=== PATIENT | female | born 1945 | race Caucasian/White ===

== ENCOUNTER → 2021-11-08 15:23 | Outpatient (BNVA) | payer MEDICARE, OTHER, SELFPAY | PROVIDERS: PCP Nurse Practitioner Adult Health; Visit Provider Nurse Practitioner Family | DX: M19.011 Primary osteoarthritis, right shoulder (principal); M19.012 Primary osteoarthritis, left shoulder | CPT/HCPCS: 99202 ==

== ENCOUNTER 2023-04-01 10:39 | Inpatient (IN) | payer MEDICARE, OTHER, SELFPAY ==
--- NOTE | ~2023-04-01 | CT_ITS ---
EXAMINATION: CT FACIAL BONES CLINICAL INFORMATION: Right-sided facial swelling COMPARISON: None TECHNIQUE: Computed axial sagittal and coronal images acquired, department standard protocol, 60 mL of Omnipaque 350 injected. DLP [address] examination was performed using dose optimization techniques as appropriate, variously including the following: *Automated exposure control *Adjustment of mA and/or kV according to patient size (this includes techniques or standardized protocols for targeted exams where dose is matched to indication/reason for exam; i.e. extremities or head) *Use of iterative reconstruction technique FINDINGS : SKULL BASE: Included structures at skull base are normal. BONES: Skull base, orbital bones, nasal bones, maxillary bones, mandibles, zygomatic arches, and included cervical vertebrae are normal. ORBITS: Globes are symmetric. Orbital structures are normal. SALIVARY GLANDS: Unremarkable SINUSES: Clear CT/CT facial bones w IV con IMPRESSION: Standard facial CT scan has limited sensitivity for assessment of periodontal disease, the morning artifact from dental implants, no large soft tissue abscesses identified. Recommend correlation with follow-up dental evaluation and x-rays.
--- NOTE | 2023-04-01 11:13 | ED_ITS ---
HPI - General Adult General Chief complaint: Dental/Oral Stated complaint: infection getting worse Time Seen by Provider: 04/01/23 12:40 Related Data Home Medications Medication Instructions Recorded Confirmed aspirin 81 mg tablet,delayed 81 mg PO DAILY 11/08/21 11/08/21 release (Adult Aspirin Regimen) atorvastatin 20 mg tablet 20 mg PO BEDTIME 11/08/21 11/08/21 diltiazem HCl 240 mg 240 mg PO DAILY 11/08/21 11/08/21 capsule,extended release 24 hr donepezil 10 mg tablet 10 mg PO BEDTIME 11/08/21 11/08/21 etodolac 400 mg tablet 400 mg PO ONCE 11/08/21 11/08/21 levothyroxine 50 mcg tablet 50 mcg PO DAILY 11/08/21 11/08/21 metformin 500 mg tablet,extended 1,500 mg PO DAILY 11/08/21 11/08/21 release 24 hr metoprolol tartrate 50 mg tablet 50 mg PO BID 11/08/21 11/08/21 nitroglycerin 0.4 mg sublingual 0.4 mg sublingual Q5M PRN 11/08/21 11/08/21 tablet omeprazole 20 mg capsule,delayed 20 mg PO BID 11/08/21 11/08/21 release sertraline 25 mg tablet 25 mg PO DAILY 11/08/21 11/08/21 sodium polystyrene sulfonate 10 g PO DAILY 11/08/21 11/08/21 topiramate 25 mg tablet 50 mg PO DAILY 11/08/21 11/08/21 Allergies Allergy/AdvReac Type Severity Reaction Status Date / Time latex [Latex] Allergy Mild SENSITIVITY Verified 11/08/21 15:31 /RASH/ITCHY meperidine [Demerol] Allergy Unknown Vomiting Verified 11/08/21 15:31 [place] Allergy Unknown nausea Uncoded 11/08/21 15:31 [facility] Past Medical History Medical History (Updated 04/01/23 @ 14:52 by Maria L Morris NP) Depression Diabetes mellitus type 2 in nonobese GERD (gastroesophageal reflux disease) Hyperlipidemia Hypertension Hypothyroidism Surgical History (Updated 04/01/23 @ 15:18 by Maria L Morris NP) H/O hernia repair H/O: hysterectomy Hx of cholecystectomy Social History Social History Smoked in Last 30 Days: No Use of substances other than those prescribed or required for medical reasons: No Advance Directives: Yes Advance Directives Information Provided: Yes Advance Directives on File: No Physical Exam ED Vital Signs: Vital Signs - 24 hr 04/01/23 11:14 04/01/23 14:39 Temperature 98.9 F 98.3 F Pulse Rate 86 84 Respiratory Rate 18 16 Blood Pressure 178/85 H 180/79 H Pulse Oximetry 98 96 Oxygen Delivery Method Room Air Room Air BMI result Body Mass Index 25.9 Course Course Course Narrative: RME performed by Renae Gordillo PA-C. Patient is a 78 year old assigned female at presenting to the emergency department with right sided facial swelling. Patient already finished a round of antibiotics and is on an additional round of antibiotics however, is vomiting and cannot keep the antibiotic down. Patient states that she is now having much more pain with mouth opening and can feel the swelling going down the right side of her neck. Labs ordered. Patient placed back in the waiting room pending room availability and results. Patient was seen by SHILPI Torres who created, completed, and signed her own note. Patient was admitted. Please refer to the other ED note from 04/01/2023. Medications Administered Generic Name Dose Route Start Last Admin Trade Name Freq PRN Reason Stop Dose Admin Sodium Chloride 3 ml 04/01/23 16:00 04/01/23 15:26 0.9 % Sodium Chloride Flush 3 Ml Syringe IVFLUSH Not Given QSHIFT JESUS MANUEL Discontinued Medications Generic Name Dose Route Start Last Admin Trade Name Freq PRN Reason Stop Dose Admin Dexamethasone Sodium Phosphate 8 mg 04/01/23 13:41 04/01/23 14:21 Dexamethasone Sod Phosphate 4 Mg/Ml Vial IVPUSH 04/01/23 13:42 8 mg ONCE ONE Administration Clindamycin Phosphate 600 mg in 50 mls @ 100 mls/hr 04/01/23 12:40 04/01/23 15:05 Cleocin IV 04/01/23 13:09 100 mls/hr ONCE ONE Administration Sodium Chloride 1,000 mls @ 999 mls/hr 04/01/23 12:45 04/01/23 15:26 Ns IV 04/01/23 13:45 Infused .Q1H1M JESUS MANUEL Infusion Sodium Chloride 1,000 mls @ 999 mls/hr 04/01/23 12:45 04/01/23 15:27 Ns IV 04/01/23 13:45 Infused .Q1H1M JESUS MANUEL Infusion Iohexol 100 ml 04/01/23 13:32 04/01/23 13:32 Iohexol 350 Mg/Ml 100 Ml Infus..Btl IV 04/01/23 13:33 60 ml ONCE ONE Administration Medical Decision Making Lab Data 04/01/23 11:36 04/01/23 11:36 Labs: Lab Results 04/01/23 04/01/23 04/01/23 Range/Units 11:34 11:36 11:36 WBC 9.7 (4.8-10.8) X10*3/uL RBC 4.91 (4.20-5.50) X10*6/uL Hgb 13.9 (12.0-16.0) g/dl Hct 40.2 (37.0-47.0) % MCV 81.9 (80.0-98.0) fL MCH 28.3 (27.0-33.0) pg MCHC 34.6 (31.0-35.0) g/dl RDW 12.6 (11.0-16.0) % Plt Count 196 (160-400) X10*3/uL MPV 10.0 (9.4-12.3) fL Immature Gran % (Auto) 0.4 (0.0-0.4) % Neut % (Auto) 75.3 H (45-73) % Lymph % (Auto) 16.2 L (20-40) % [place] % (Auto) 7.6 (2-11) % Eos % (Auto) 0.1 (0-4) % Baso % (Auto) 0.4 (0-2) % Lymph # (Auto) 1.6 (1.2-4.9) X10*3/uL [place] # (Auto) 0.7 (0.1-1.2) X10*3/uL Eos # (Auto) 0.0 (0.0-0.4) X10*3/uL Baso # (Auto) 0.0 (0.0-0.2) X10*3/uL Abs Immat Gran (auto) 0.04 H (0.00-0.03) X10*3/uL Absolute Neuts (auto) 7.3 (2.0-8.3) x10*3/uL Absolute Nucleated RBC 0.000 (0.0-0.012) X10*3/uL Nucleated RBC % (auto) 0.0 (0.0-0.2) /100WBC ESR 28 H (0-20) MM/HR Sodium (135-145) mmol/L Potassium (3.3-5.1) mmol/L Chloride (96-108) mmol/L Carbon Dioxide (22-29) mmol/L Anion Gap (12-20) BUN (9-16) mg/dL Creatinine (0.5-1.4) mg/dL Estim Creat Clear Calc Estimated GFR Random Glucose (60-115) mg/dL Lactic Acid 2.7 H* (0.5-2.0) mmol/L Lactic Acid F/U @ 2Hr (0.5-2.0) mmol/L Calcium (8.4-10.2) mg/dL Magnesium (1.6-2.6) mg/dL Total Bilirubin (0.0-1.0) mg/dL AST (5-31) U/L ALT (0-31) U/L Alkaline Phosphatase (39-117) U/L C-Reactive Protein (< or = 0.50) mg/dL Total Protein (6.5-8.0) g/dL Albumin (3.5-5.0) g/dL 04/01/23 04/01/23 Range/Units 11:36 14:34 WBC (4.8-10.8) X10*3/uL RBC (4.20-5.50) X10*6/uL Hgb (12.0-16.0) g/dl Hct (37.0-47.0) % MCV (80.0-98.0) fL MCH (27.0-33.0) pg MCHC (31.0-35.0) g/dl RDW (11.0-16.0) % Plt Count (160-400) X10*3/uL MPV (9.4-12.3) fL Immature Gran % (Auto) (0.0-0.4) % Neut % (Auto) (45-73) % Lymph % (Auto) (20-40) % [place] % (Auto) (2-11) % Eos % (Auto) (0-4) % Baso % (Auto) (0-2) % Lymph # (Auto) (1.2-4.9) X10*3/uL [place] # (Auto) (0.1-1.2) X10*3/uL Eos # (Auto) (0.0-0.4) X10*3/uL Baso # (Auto) (0.0-0.2) X10*3/uL Abs Immat Gran (auto) (0.00-0.03) X10*3/uL Absolute Neuts (auto) (2.0-8.3) x10*3/uL Absolute Nucleated RBC (0.0-0.012) X10*3/uL Nucleated RBC % (auto) (0.0-0.2) /100WBC ESR (0-20) MM/HR Sodium 133 L (135-145) mmol/L Potassium 4.2 (3.3-5.1) mmol/L Chloride 101 (96-108) mmol/L Carbon Dioxide 17 L (22-29) mmol/L Anion Gap 19 (12-20) BUN 11 (9-16) mg/dL Creatinine 0.77 (0.5-1.4) mg/dL Estim Creat Clear Calc 55.0 Estimated GFR > 60 Random Glucose 232 H (60-115) mg/dL Lactic Acid (0.5-2.0) mmol/L Lactic Acid F/U @ 2Hr 3.3 H* (0.5-2.0) mmol/L Calcium 9.9 (8.4-10.2) mg/dL Magnesium 1.7 (1.6-2.6) mg/dL Total Bilirubin 0.8 (0.0-1.0) mg/dL AST 23 (5-31) U/L ALT 23 (0-31) U/L Alkaline Phosphatase 104 (39-117) U/L C-Reactive Protein 12.72 H (< or = 0.50) mg/dL Total Protein 7.7 (6.5-8.0) g/dL Albumin 4.5 (3.5-5.0) g/dL Discharge Plan Discharge Clinical Impression: Toothache, Dental abscess, Trismus, Facial swelling Patient Disposition: Admitted As Inpatient
[2023-04-01 11:14] VITALS: BP 178/85; PULSE 86; RESP 18; TEMP 37.2; O2SAT 98; BMI 25.9
[2023-04-01 11:42] LABS: MANUAL DIFF FLAG NO
[2023-04-01 11:45] LABS: Basophils Percent Auto 0.4 % (0-2); Eosinophils Percent Auto 0.1 % (0-4); Hematocrit 40.2 % (37.0-47.0); Hemoglobin 13.9 g/dl (12.0-16.0); Imm Gran Abs Auto 0.04 X10*3/uL (0.00-0.03); Imm Gran Pct Auto 0.4 % (0.0-0.4); Lymphocytes Absolute Auto 1.6 X10*3/uL (1.2-4.9); Lymphocytes Percent Auto 16.2 % (20-40); Mean Corpuscular HGB Conc 34.6 g/dl (31.0-35.0); Mean Corpuscular Hemoglobin 28.3 pg (27.0-33.0); Mean Corpuscular Volume 81.9 fL (80.0-98.0); Monocytes Absolute Auto 0.7 X10*3/uL (0.1-1.2); Monocytes Percent Auto 7.6 % (2-11); Neutrophils Absolute Auto 7.3 x10*3/uL (2.0-8.3); Neutrophils Percent Auto 75.3 % (45-73); Platelet Count 196 X10*3/uL (160-400); Red Blood Count 4.91 X10*6/uL (4.20-5.50); Red Cell Distribution Width 12.6 % (11.0-16.0); White Blood Count 9.7 X10*3/uL (4.8-10.8)
[2023-04-01 12:00] LABS: Alanine Aminotransferase 23 U/L (0-31); Albumin Level 4.5 g/dL (3.5-5.0); Alkaline Phosphatase 104 U/L (39-117); Anion Gap 19 (12-20); Aspartate Amino Transferase 23 U/L (5-31); Bilirubin Total 0.8 mg/dL (0.0-1.0); Blood Urea Nitrogen 11 mg/dL (9-16); C Reactive Protein 12.72 mg/dL (< or = 0.50); Calcium 9.9 mg/dL (8.4-10.2); Carbon Dioxide 17 mmol/L (22-29); Chloride 101 mmol/L (96-108); Estimated Glomerular Filt Rate > 60; Glucose Random 232 mg/dL (60-115); Magnesium 1.7 mg/dL (1.6-2.6); Potassium 4.2 mmol/L (3.3-5.1); Sodium 133 mmol/L (135-145); Total Protein 7.7 g/dL (6.5-8.0)
[2023-04-01 12:02] LABS: Lactic Acid 2.7 mmol/L (0.5-2.0)
[2023-04-01 12:29] LABS: Erythrocyte Sedimentation Rate 28 MM/HR (0-20)
--- NOTE | 2023-04-01 12:41 | ED.DENTAL ---
HPI - Dental/Oral General Chief complaint: Dental/Oral Stated complaint: infection getting worse Time Seen by Provider: 04/01/23 12:40 Source: patient Mode of arrival: ambulatory Limitations: no limitations History of Present Illness HPI Narrative: This is a 78-year-old female history of diabetes, recently diagnosed with dental infection presenting to the emergency department with concerns that infection is worsening despite multiple rounds of antibiotics. Patient reports she is having right-sided facial swelling, and pain that radiates into the right side of her neck she feels like the whole right side of her face and neck is much more swollen than usual, patient has been on 2 rounds of antibiotics with little to no improvement. Patient now reports it is very painful to open her mouth. Endorses fatigue, malaise, nausea, vomiting. Had dental work done last sunday a routine cleaning. Denies headache, vision changes, dizziness, weakness, chest pain, shortness of breath, fevers, chills Related Data Home Medications Medication Instructions Recorded Confirmed aspirin 81 mg tablet,delayed 81 mg PO DAILY 11/08/21 11/08/21 release (Adult Aspirin Regimen) atorvastatin 20 mg tablet 20 mg PO BEDTIME 11/08/21 11/08/21 diltiazem HCl 240 mg 240 mg PO DAILY 11/08/21 11/08/21 capsule,extended release 24 hr donepezil 10 mg tablet 10 mg PO BEDTIME 11/08/21 11/08/21 etodolac 400 mg tablet 400 mg PO ONCE 11/08/21 11/08/21 levothyroxine 50 mcg tablet 50 mcg PO DAILY 11/08/21 11/08/21 metformin 500 mg tablet,extended 1,500 mg PO DAILY 11/08/21 11/08/21 release 24 hr metoprolol tartrate 50 mg tablet 50 mg PO BID 11/08/21 11/08/21 nitroglycerin 0.4 mg sublingual 0.4 mg sublingual Q5M PRN 11/08/21 11/08/21 tablet omeprazole 20 mg capsule,delayed 20 mg PO BID 11/08/21 11/08/21 release sertraline 25 mg tablet 25 mg PO DAILY 11/08/21 11/08/21 sodium polystyrene sulfonate 10 g PO DAILY 11/08/21 11/08/21 topiramate 25 mg tablet 50 mg PO DAILY 11/08/21 11/08/21 Allergies Allergy/AdvReac Type Severity Reaction Status Date / Time latex [Latex] Allergy Mild SENSITIVITY Verified 11/08/21 15:31 /RASH/ITCHY meperidine [Demerol] Allergy Unknown Vomiting Verified 11/08/21 15:31 [place] Allergy Unknown nausea Uncoded 11/08/21 15:31 Review of Systems Review of Systems: Constitutional : No Fever, No Chills ENT/Mouth : No swallowing difficulty, no change in voice, positive dental pain, positive jaw pain, positive facial swelling Eyes: No Eye Pain, No Swelling Cardiovascular : No Chest Pain, No SOB Respiratory : No Cough, No Sputum Gastrointestinal : No Nausea, No Vomiting, No Diarrhea Genitourinary : No Dysuria Musculoskeletal : No Myalgias Skin : No rash Neuro : No Weakness, No Numbness, No Headache Yes all other systems are reviewed and are negative [facility], [facility] Past Medical History Attestation statement: The following information was validated with the patient. Source: old records reviewed and nursing notes reviewed Medical History (Updated 04/01/23 @ 14:52 by Maria L Morris NP) Depression Diabetes mellitus type 2 in nonobese GERD (gastroesophageal reflux disease) Hyperlipidemia Hypertension Hypothyroidism Surgical History (Updated 04/01/23 @ 15:18 by Maria L Morris NP) H/O hernia repair H/O: hysterectomy Hx of cholecystectomy Social History Social History Smoked in Last 30 Days: No Use of substances other than those prescribed or required for medical reasons: No Advance Directives: Yes Advance Directives Information Provided: Yes Advance Directives on File: No Physical Exam Vital Signs: Vital Signs: Last Vital Signs Temp 98.3 F 04/01/23 14:39 Pulse 84 04/01/23 14:39 Resp 16 04/01/23 14:39 BP 180/79 H 04/01/23 14:39 Pulse Ox 96 04/01/23 14:39 O2 Del Method Room Air 04/01/23 14:39 BMI result Body Mass Index 25.9 Vital signs stable Appearance: Alert.? Oriented X3.? No acute distress.? Head: Normocephalic, atraumatic, no step-offs or deformities Eyes: Pupils equal, round and reactive to light.? ENT: Pharynx normal.?+ poor dentition throughout, multiple dental caries throughout, tenderness to palpation to right side of face, particularly around the right lower gum region (? developing dental abscess around right lower wisdom tooth) with overlying erythema, warmth. Fractured right lower wisdom tooth Positive trismus patient speaking in full sentences controlling secretions well Neck: Normal inspection.? Neck supple.? CVS: Normal heart rate and rhythm.? Pulses normal.? Respiratory: No respiratory distress.? Breath sounds normal.? Abdomen: Soft and nontender.? Skin: Skin warm and dry.? Normal skin color.? Normal skin turgor.? Extremities: No lower extremity edema.? No calf ttp. 5/5 strength to bilateral upper and lower extremities Back: No midline tenderness, no C-spine tenderness, full range of motion, no CVA tenderness bilaterally Neuro: Oriented X 3.? No motor deficit.? No sensory deficit. CN 2-12 intact Course Reevaluation(s) Reevaluation #1: CBC with no acute findings. Chemistry with low sodium 133, IV fluids ordered. Patient's lactic elevated 2.7, IV fluids as well as antibiotics are ordered. Patient's glucose 232, receiving IV hydration. CRP markedly elevated 12.72. Pending CT facial bones with contrast to rule out abscess. Time: 12:45 Reevaluation #2: CT of facial bones does not identify any large soft tissue abscess identified. Patient likely has a small right lower dental abscess, with associated cellulitis, plan for hospital admission as patient has failed p.o. antibiotics. Time: 14:19 Reevaluation #3: Discussed this case my attending who agrees with hospital admission as patient has failed p.o. antibiotics. Time: 14:21 Medications Administered Discontinued Medications Generic Name Dose Route Start Last Admin Trade Name Freq PRN Reason Stop Dose Admin Dexamethasone Sodium Phosphate 8 mg 04/01/23 13:41 04/01/23 14:21 Dexamethasone Sod Phosphate 4 Mg/Ml Vial IVPUSH 04/01/23 13:42 8 mg ONCE ONE Administration Clindamycin Phosphate 600 mg in 50 mls @ 100 mls/hr 04/01/23 12:40 04/01/23 15:05 Cleocin IV 04/01/23 13:09 100 mls/hr ONCE ONE Administration Sodium Chloride 1,000 mls @ 999 mls/hr 04/01/23 12:45 04/01/23 13:41 Ns IV 04/01/23 13:45 999 mls/hr .Q1H1M JESUS MANUEL Administration Sodium Chloride 1,000 mls @ 999 mls/hr 04/01/23 12:45 04/01/23 13:44 Ns IV 04/01/23 13:45 999 mls/hr .Q1H1M JESUS MANUEL Administration Iohexol 100 ml 04/01/23 13:32 04/01/23 13:32 Iohexol 350 Mg/Ml 100 Ml Infus..Btl IV 04/01/23 13:33 60 ml ONCE ONE Administration Medical Decision Making Medical Decision Making [facility] Narrative: 1248 78-year-old female presents with tooth infection and now subsequent right-sided facial swelling and difficulties with opening mouth Physical exam significant for poor dentition throughout, multiple dental caries throughout, tenderness to palpation to right side of face, particularly around the right lower gum region (? developing dental abscess around right lower wisdom tooth)with overlying erythema, warmth. Fractured right lower wisdom tooth Positive trismus patient speaking in full sentences controlling secretions well Concerns for cellulitis versus worsening infection versus dental abscess versus poor dentition versus dental caries. Will rule out dental abscess. No signs of airway compromise at this time. Will rule out electrolyte abnormalities. No abdominal tenderness to palpation unlikely acute abdomen, appendicitis, cholecystitis, diverticulitis, pancreatitis. No sign of necrotizing infection, or Mario's Patient feeling p.o. antibiotics, IV antibiotics warranted as well as hospital admission. Plan labs, imaging, blood cultures, lactic acid, antibiotics, fluids. Differential Diagnosis Differential Diagnoses: The differential diagnosis associated with the presentation includes Concerns for cellulitis versus worsening infection versus dental abscess versus poor dentition versus dental caries. Will rule out dental abscess. No signs of airway compromise at this time. Will rule out electrolyte abnormalities. No abdominal tenderness to palpation unlikely acute abdomen, appendicitis, cholecystitis, diverticulitis, pancreatitis. No sign of necrotizing infection, or Mario's Admission/Observation Consideration of admission/observation: Escalation of care including admission/observation considered Likely Lab Data [facility] Lab Attestation statement: I reviewed the patient's lab results. 04/01/23 11:36 04/01/23 11:36 Labs: Lab Results 04/01/23 04/01/23 04/01/23 Range/Units 11:34 11:36 11:36 WBC 9.7 (4.8-10.8) X10*3/uL RBC 4.91 (4.20-5.50) X10*6/uL Hgb 13.9 (12.0-16.0) g/dl Hct 40.2 (37.0-47.0) % MCV 81.9 (80.0-98.0) fL MCH 28.3 (27.0-33.0) pg MCHC 34.6 (31.0-35.0) g/dl RDW 12.6 (11.0-16.0) % Plt Count 196 (160-400) X10*3/uL MPV 10.0 (9.4-12.3) fL Immature Gran % (Auto) 0.4 (0.0-0.4) % Neut % (Auto) 75.3 H (45-73) % Lymph % (Auto) 16.2 L (20-40) % [place] % (Auto) 7.6 (2-11) % Eos % (Auto) 0.1 (0-4) % Baso % (Auto) 0.4 (0-2) % Lymph # (Auto) 1.6 (1.2-4.9) X10*3/uL [place] # (Auto) 0.7 (0.1-1.2) X10*3/uL Eos # (Auto) 0.0 (0.0-0.4) X10*3/uL Baso # (Auto) 0.0 (0.0-0.2) X10*3/uL Abs Immat Gran (auto) 0.04 H (0.00-0.03) X10*3/uL Absolute Neuts (auto) 7.3 (2.0-8.3) x10*3/uL Absolute Nucleated RBC 0.000 (0.0-0.012) X10*3/uL Nucleated RBC % (auto) 0.0 (0.0-0.2) /100WBC ESR 28 H (0-20) MM/HR Sodium (135-145) mmol/L Potassium (3.3-5.1) mmol/L Chloride (96-108) mmol/L Carbon Dioxide (22-29) mmol/L Anion Gap (12-20) BUN (9-16) mg/dL Creatinine (0.5-1.4) mg/dL Estim Creat Clear Calc Estimated GFR Random Glucose (60-115) mg/dL Lactic Acid 2.7 H* (0.5-2.0) mmol/L Lactic Acid F/U @ 2Hr (0.5-2.0) mmol/L Calcium (8.4-10.2) mg/dL Magnesium (1.6-2.6) mg/dL Total Bilirubin (0.0-1.0) mg/dL AST (5-31) U/L ALT (0-31) U/L Alkaline Phosphatase (39-117) U/L C-Reactive Protein (< or = 0.50) mg/dL Total Protein (6.5-8.0) g/dL Albumin (3.5-5.0) g/dL 04/01/23 04/01/23 Range/Units 11:36 14:34 WBC (4.8-10.8) X10*3/uL RBC (4.20-5.50) X10*6/uL Hgb (12.0-16.0) g/dl Hct (37.0-47.0) % MCV (80.0-98.0) fL MCH (27.0-33.0) pg MCHC (31.0-35.0) g/dl RDW (11.0-16.0) % Plt Count (160-400) X10*3/uL MPV (9.4-12.3) fL Immature Gran % (Auto) (0.0-0.4) % Neut % (Auto) (45-73) % Lymph % (Auto) (20-40) % [place] % (Auto) (2-11) % Eos % (Auto) (0-4) % Baso % (Auto) (0-2) % Lymph # (Auto) (1.2-4.9) X10*3/uL [place] # (Auto) (0.1-1.2) X10*3/uL Eos # (Auto) (0.0-0.4) X10*3/uL Baso # (Auto) (0.0-0.2) X10*3/uL Abs Immat Gran (auto) (0.00-0.03) X10*3/uL Absolute Neuts (auto) (2.0-8.3) x10*3/uL Absolute Nucleated RBC (0.0-0.012) X10*3/uL Nucleated RBC % (auto) (0.0-0.2) /100WBC ESR (0-20) MM/HR Sodium 133 L (135-145) mmol/L Potassium 4.2 (3.3-5.1) mmol/L Chloride 101 (96-108) mmol/L Carbon Dioxide 17 L (22-29) mmol/L Anion Gap 19 (12-20) BUN 11 (9-16) mg/dL Creatinine 0.77 (0.5-1.4) mg/dL Estim Creat Clear Calc 55.0 Estimated GFR > 60 Random Glucose 232 H (60-115) mg/dL Lactic Acid (0.5-2.0) mmol/L Lactic Acid F/U @ 2Hr 3.3 H* (0.5-2.0) mmol/L Calcium 9.9 (8.4-10.2) mg/dL Magnesium 1.7 (1.6-2.6) mg/dL Total Bilirubin 0.8 (0.0-1.0) mg/dL AST 23 (5-31) U/L ALT 23 (0-31) U/L Alkaline Phosphatase 104 (39-117) U/L C-Reactive Protein 12.72 H (< or = 0.50) mg/dL Total Protein 7.7 (6.5-8.0) g/dL Albumin 4.5 (3.5-5.0) g/dL Independent Interpretation I performed an independent interpretation of an: CT Scan Radiology Impression Discussion of test interpretation with radiology: I have reviewed the radiologist's reading. Core Measures AMI core measures followed: Yes Measure exclusions: not indicated Critical Care Time Critical Care Time Critical Care Time: Yes Total Critical Care Time: 35 Attestation: I attest to this time spent taking care of the patient, obtaining history, physical, reviewing labs, imaging, speaking to my attending, Discharge Plan Discharge Clinical Impression: Toothache, Dental abscess, Trismus, Facial swelling Patient Disposition: Admitted As Inpatient
[2023-04-01] MEDS: iohexoL 350 MG/ML 100 ML INFUS..BTL IV (13:32)
[2023-04-01 13:40] LABS: Reflex Lactate? Lactic Acid Added
[2023-04-01] MEDS: 0.9 % Sodium Chloride 1,000 ML 999 ML IV ×2 (13:41→13:44)
[2023-04-01] MEDS: dexAMETHasone sod phosphate 4 MG/ML VIAL 8 MG IVPUSH (14:21)
[2023-04-01 14:39] VITALS: BP 180/79; PULSE 84; RESP 16; TEMP 36.8; O2SAT 96
--- NOTE | 2023-04-01 14:50 | P.HPHOSP_ITS ---
History of Present Illness Date of Service: 04/01/23 Chief Complaint: Tooth pain 70-year-old woman presented to the ER with tooth infection. Patient was being treated with oral antibiotics but failed. She had episodes of nausea and vomiting and was unable to keep anything down. She reported increased swelling to her right gum area as well as her cheek and neck area. Very sensitive and painful to the touch. She denied fever, chills. She does have an appointment with an oral surgeon on . Facial CT showed no large soft tissue abscess although on clinical examination she does appear to have a small one on the gum area. Labs within acceptable limits, vital signs are stable though her blood pressure is high Likely secondary to pain. In the ER, she was given a dose of clindamycin, Decadron and 2 L of IV fluids. She will be admitted for further management and treatment of acute tooth infection with abscess. Review of Systems Review of Systems: Denies any recent fever chills or decrease in appetite respiratory denies any shortness of breath coverage production cardiovascular denied chest pain gastrointestinal denies any dysphagia abdominal pain nausea vomiting or diarrhea genitourinary denies any dysuria frequency or hematuria musculoskeletal denies any joint pain or swelling neuropsych denies any weakness or seizures all other systems reviewed are negative [facility] Medical History (Updated 04/01/23 @ 14:52 by Maria L Morris NP) Depression Diabetes mellitus type 2 in nonobese GERD (gastroesophageal reflux disease) Hyperlipidemia Hypertension Hypothyroidism Pertinent family history: Melanoma: sister and niece Surgical History (Updated 04/01/23 @ 15:18 by Maria L Morris NP) H/O hernia repair H/O: hysterectomy Hx of cholecystectomy Social History Smoked in Last 30 Days: No Use of substances other than those prescribed or required for medical reasons: No Advance Directives: Yes Advance Directives Information Provided: Yes Advance Directives on File: No Meds Allergies Allergy/AdvReac Type Severity Reaction Status Date / Time latex [Latex] Allergy Mild SENSITIVITY Verified 11/08/21 15:31 /RASH/ITCHY meperidine [Demerol] Allergy Unknown Vomiting Verified 11/08/21 15:31 [place] Allergy Unknown nausea Uncoded 11/08/21 15:31 Active Medications: Current Medications Pharmacy Consult (Consult Rx Perform Med Rec) 1 each MISCELLANE ONCE PRN PRN Reason: Consult order Home Medications Medication Instructions Recorded Confirmed Last Taken Type aspirin 81 mg tablet,delayed 81 mg PO DAILY 11/08/21 11/08/21 Unknown History release (Adult Aspirin Regimen) atorvastatin 20 mg tablet 20 mg PO BEDTIME 11/08/21 11/08/21 Unknown History diltiazem HCl 240 mg 240 mg PO DAILY 11/08/21 11/08/21 Unknown History capsule,extended release 24 hr donepezil 10 mg tablet 10 mg PO BEDTIME 11/08/21 11/08/21 Unknown History etodolac 400 mg tablet 400 mg PO ONCE 11/08/21 11/08/21 Unknown History levothyroxine 50 mcg tablet 50 mcg PO DAILY 11/08/21 11/08/21 Unknown History metformin 500 mg tablet,extended 1,500 mg PO DAILY 11/08/21 11/08/21 Unknown History release 24 hr metoprolol tartrate 50 mg tablet 50 mg PO BID 11/08/21 11/08/21 Unknown History nitroglycerin 0.4 mg sublingual 0.4 mg sublingual Q5M PRN 11/08/21 11/08/21 Unknown History tablet omeprazole 20 mg capsule,delayed 20 mg PO BID 11/08/21 11/08/21 Unknown History release sertraline 25 mg tablet 25 mg PO DAILY 11/08/21 11/08/21 Unknown History sodium polystyrene sulfonate 10 g PO DAILY 11/08/21 11/08/21 Unknown History topiramate 25 mg tablet 50 mg PO DAILY 11/08/21 11/08/21 Unknown History Physical Exam Vital Signs and Narrative: Vital Signs: Last Vital Signs Temp 98.3 F 04/01/23 14:39 Pulse 84 04/01/23 14:39 Resp 16 04/01/23 14:39 BP 180/79 H 04/01/23 14:39 Pulse Ox 96 04/01/23 14:39 O2 Del Method Room Air 04/01/23 14:39 BMI result Body Mass Index 25.9 Results Labs 04/01/23 11:36 04/01/23 11:36 Labs: Laboratory Results - last 24 hr 04/01/23 04/01/23 04/01/23 11:34 11:36 11:36 MCV 81.9 MCH 28.3 MCHC 34.6 RDW 12.6 Plt Count 196 MPV 10.0 Immature Gran % (Auto) 0.4 Neut % (Auto) 75.3 H Lymph % (Auto) 16.2 L [place] % (Auto) 7.6 Eos % (Auto) 0.1 Baso % (Auto) 0.4 Lymph # (Auto) 1.6 [place] # (Auto) 0.7 Eos # (Auto) 0.0 Baso # (Auto) 0.0 Abs Immat Gran (auto) 0.04 H Absolute Neuts (auto) 7.3 Absolute Nucleated RBC 0.000 Nucleated RBC % (auto) 0.0 ESR 28 H Anion Gap Estim Creat Clear Calc Estimated GFR Random Glucose Lactic Acid 2.7 H* Calcium Magnesium Total Bilirubin AST ALT Alkaline Phosphatase C-Reactive Protein Total Protein Albumin 04/01/23 11:36 MCV MCH MCHC RDW Plt Count MPV Immature Gran % (Auto) Neut % (Auto) Lymph % (Auto) [place] % (Auto) Eos % (Auto) Baso % (Auto) Lymph # (Auto) [place] # (Auto) Eos # (Auto) Baso # (Auto) Abs Immat Gran (auto) Absolute Neuts (auto) Absolute Nucleated RBC Nucleated RBC % (auto) ESR Anion Gap 19 Estim Creat Clear Calc 55.0 Estimated GFR > 60 Random Glucose 232 H Lactic Acid Calcium 9.9 Magnesium 1.7 Total Bilirubin 0.8 AST 23 ALT 23 Alkaline Phosphatase 104 C-Reactive Protein 12.72 H Total Protein 7.7 Albumin 4.5 Imaging Radiologist's Impressions: Impressions Face CT 04/01/23 13:33 IMPRESSION: Standard facial CT scan has limited sensitivity for assessment of periodontal disease, the morning artifact from dental implants, no large soft tissue abscesses identified. Recommend correlation with follow-up dental evaluation and x-rays. Assessment and Plan (1) Toothache: Status: Acute Plan 78-year-old woman admitted with tooth abscess. She failed 2 rounds of outpatient antibiotics. Tooth abscess with infection No sepsis Will treat with clindamycin IV Pain management Will need to follow up in a dental office once acute infection is gone Soft diet with Ensure Lidocaine viscous as needed for mild pain Hypertension Elevated blood pressure likely secondary to pain Continue metoprolol and diltiazem Mental health Continue home medications Hypothyroidism Continue levothyroxine Hyperlipidemia Continue statin GERD Continue PPI DVT prophylaxis with Lovenox Full code Patient required 2 inpatient midnights for treatment of tooth abscess and infection requiring IV antibiotics Time Spent With Patient Time: Total time managing care of this patient today ____ minutes. Quality Stroke Does the patient have a stroke diagnosis?: No VTE Prior VTE?: No VTE Risk Level:: Medical - moderate - high VTE Device Contraindication: Treatment Not Indicated VTE Drug Contraindication: N/A - Med Ordered
[2023-04-01 14:59] LABS: ~Lactic Acid-LAB USE ONLY 3.3 mmol/L (0.5-2.0)
[2023-04-01] MEDS: Clindamycin Phosphate/D5W 600 MG/50 ML PIGGYBACK 100 MG IV ×2 (15:05→21:06)
--- NOTE | 2023-04-01 16:28 | PC.NURSE ---
pt a&o x4, pleasant, calm, and cooperative. 20G placed to the Left wrist/forearm, patent. pt medicated per oct. pt up to commode and ambulatory. awaiting admit orders. rr even/unlabored. pt needs met new. call moore within reach
[2023-04-01 16:38] LABS: Reflex Lactate? 2 Y
[2023-04-01 17:15] LABS: ~Lactic Acid-LAB USE ONLY 1.9 mmol/L (0.5-2.0)
[2023-04-01 17:56] LABS: Glucose, Whole Blood 252 mg/dL (60-115)
--- NOTE | 2023-04-01 18:07 | PHA.MEDREC ---
Pharmacy Consult ? Medication Reconciliation Pharmacy has completed the medication reconciliation. spoke with patients daughter who helps her with her medications. Gabapentin is prescribed as 600 BID but patient takes 300mg TID. Patient verified using Toujeo pen 10u every morning. She also verified using Kayexalate powder 10g every morning. She said she took her morning medications today.
[2023-04-01] MEDS: Insulin Lispro 100 UNIT/ML 3 ML VIAL SUBCUT ×2 (18:42→21:07)
[2023-04-01 19:01] VITALS: BP 187/91; PULSE 91; RESP 17; TEMP 36.9; O2SAT 97
[2023-04-01] MEDS: ondansetron HCL 4 MG/2 ML VIAL IVPUSH (20:00)
[2023-04-01 20:59] LABS: Glucose, Whole Blood 322 mg/dL (60-115)
[2023-04-01 21:04] VITALS: BP 184/83; PULSE 91; RESP 18; O2SAT 95
[2023-04-01] MEDS: Acetaminophen 325 MG TABLET 650 MG PO (21:06)
[2023-04-01] MEDS: Metoprolol Tartrate 50 MG TABLET PO (21:06)
[2023-04-02] VITALS (9 sets, daily range): BP systolic 168–218; BP diastolic 68–95; PULSE 70–99; RESP 17–18; TEMP 36.3–36.8; O2SAT 95–98; BMI 25.0
[2023-04-02] MEDS: 0.9 % Sodium Chloride Flush 3 ML SYRINGE IVFLUSH ×4 (00:16→20:11)
--- NOTE | 2023-04-02 00:30 | PC.NURSE ---
Report to Hong RAINEY.
[2023-04-02] MEDS: hydrALAZINE HCl 20 MG/ML VIAL 10 MG IVPUSH ×2 (02:19→06:30)
[2023-04-02] MEDS: Melatonin 3 MG TABLET 6 MG PO (02:19)
[2023-04-02] MEDS: Clindamycin Phosphate/D5W 600 MG/50 ML PIGGYBACK 100 MG IV ×4 (02:19→20:10)
--- NOTE | 2023-04-02 04:07 | PC.NURSE ---
Addendum entered by Thaddeus Link RN 04/02/23 06:09: Bp continues to be elevated. MD notified. AM meds given early per Ming DEWITT. Additional dose of hydralzine ordered. PRN Tylenol for c/o headache. Original Note: Pt admitted from ED. A&Ox4. Pleasant and cooperative with care. A&Ox4, steady on feet. Ambulating from stretcher to bed without difficultly. IV Antibiotics as ordered. Right cheek/jaw line swelling as noted in ED. Call moore within reach.
[2023-04-02] MEDS: Omeprazole 20 MG CAPSULE.DR PO (05:59)
[2023-04-02] MEDS: Acetaminophen 325 MG TABLET 650 MG PO ×2 (06:06→18:36)
[2023-04-02] MEDS: Metoprolol Tartrate 50 MG TABLET PO ×2 (06:07→20:10)
[2023-04-02] MEDS: dilTIAZem HCL CD 300 MG CAP.ER.24H PO (06:07)
[2023-04-02 06:47] LABS: MANUAL DIFF FLAG NO
[2023-04-02 07:01] LABS: Basophils Percent Auto 0.2 % (0-2); Hematocrit 42.1 % (37.0-47.0); Hemoglobin 14.5 g/dl (12.0-16.0); Imm Gran Abs Auto 0.12 X10*3/uL (0.00-0.03); Lymphocytes Absolute Auto 2.2 X10*3/uL (1.2-4.9); Lymphocytes Percent Auto 18.3 % (20-40); Mean Corpuscular HGB Conc 34.4 g/dl (31.0-35.0); Mean Corpuscular Hemoglobin 28.8 pg (27.0-33.0); Mean Corpuscular Volume 83.7 fL (80.0-98.0); Mean Platelet Volume 10.4 fL (9.4-12.3); Monocytes Absolute Auto 0.4 X10*3/uL (0.1-1.2); Monocytes Percent Auto 3.3 % (2-11); Neutrophils Absolute Auto 9.4 x10*3/uL (2.0-8.3); Neutrophils Percent Auto 77.2 % (45-73); Platelet Count 266 X10*3/uL (160-400); Red Blood Count 5.03 X10*6/uL (4.20-5.50); Red Cell Distribution Width 13.1 % (11.0-16.0); White Blood Count 12.2 X10*3/uL (4.8-10.8)
[2023-04-02 07:16] LABS: Anion Gap 21 (12-20); Blood Urea Nitrogen 13 mg/dL (9-16); Calcium 10.4 mg/dL (8.4-10.2); Carbon Dioxide 18 mmol/L (22-29); Chloride 102 mmol/L (96-108); Creatinine Clr Calc Pharmacy 47.3; Estimated Glomerular Filt Rate > 60; Glucose Random 308 mg/dL (60-115); Potassium 3.7 mmol/L (3.3-5.1); Sodium 137 mmol/L (135-145)
[2023-04-02 07:20] LABS: Glucose, Whole Blood 313 mg/dL (60-115)
[2023-04-02] MEDS: ondansetron HCL 4 MG/2 ML VIAL IVPUSH ×2 (07:47→14:18)
[2023-04-02] MEDS: Aspirin 81 MG TAB.CHEW PO (07:47)
[2023-04-02] MEDS: Insulin Lispro 100 UNIT/ML 3 ML VIAL SUBCUT ×7 (07:53→21:19)
[2023-04-02] MEDS: oxyCODONE HCl Immed Release 5 MG TABLET PO ×2 (07:54→18:36)
[2023-04-02] MEDS: Sertraline HCL 25 MG TABLET PO (07:54)
--- NOTE | 2023-04-02 08:42 | HO.PM.IMPN ---
Subjective Subjective Date of Service: 04/02/23 Review of Systems Follow-up tooth pain an abscess Swelling has decreased as well as pain Physical Exam Vital Signs: Vital Signs: Last Vital Signs Temp 98.2 F 04/02/23 07:31 Pulse 82 04/02/23 07:31 Resp 18 04/02/23 07:31 BP 178/83 H 04/02/23 07:31 Pulse Ox 96 04/02/23 07:31 O2 Del Method Room Air 04/02/23 07:31 BMI result Body Mass Index 25.0 Appearing in no acute distress lung sounds are clear to auscultation heart regular rate rhythm, clear S1, S2 positive bowel sounds, abdomen is soft, nontender neuro patient is alert x3, no focal deficits Erythema below chin are, edema has improved Objective Data Active Medications Acetaminophen (Acetaminophen 325 Mg Tablet) 650 mg PO Q6H PRN PRN Reason: Pain, Mild (Pain Scale 1-3) Last Admin: 04/02/23 06:06 Dose: 650 mg Documented By: TOMASA Aspirin (Aspirin 81 Mg Tab.Chew) 81 mg PO DAILY [facility] Last Admin: 04/02/23 07:47 Dose: 81 mg Documented By: NEO Dextrose (Dextrose 50 % 25 Gm/50 Ml Syringe) 25 gm IVPUSH Q15M PRN; Protocol PRN Reason: per Hypoglycemia Standing Ord. Diltiazem HCl (Diltiazem Hcl Cd 300 Mg Cap.Er.24h) 300 mg PO DAILY [facility]; Protocol Last Admin: 04/02/23 06:07 Dose: 300 mg Documented By: TOMASA Comments: given early per MD Lai Enoxaparin Sodium (Enoxaparin Sodium 40 Mg/0.4 Ml Syringe) 40 mg SUBCUT Q24H [facility] Last Admin: 04/01/23 15:33 Dose: Not Given Documented By: MARYANA Non-Admin Reason: Patient Refused Glucose (Glucose Gel 15 Gm Gel..Gram.) 15 gm PO Q15M PRN; Protocol PRN Reason: per Hypoglycemia Standing Ord. Clindamycin Phosphate (Cleocin) 600 mg in 50 mls @ 100 mls/hr IV Q6H [facility] Last Infusion: 04/02/23 08:29 Dose: 0 mls/hr Documented By: NEO Insulin Human Lispro (Insulin Lispro 100 Unit/Ml 3 Ml Vial) 0 unit SUBCUT QIDAS [facility]; Protocol Last Admin: 04/02/23 07:53 Dose: 8 unit Documented By: NEO Insulin Human Lispro (Insulin Lispro 100 Unit/Ml 3 Ml Vial) [facility] Admin: 04/02/23 07:53 Dose: 5 unit Documented By: NEO Lidocaine HCl (Lidocaine Hcl Viscous 2 % 15 Ml Solution) 15 ml MUCOUS MEM Q3H PRN PRN Reason: tooth pain Melatonin (Melatonin 3 Mg Tablet) 6 mg PO BEDTIME PRN PRN Reason: Insomnia Last Admin: 04/02/23 02:19 Dose: 6 mg Documented By: TOMASA Metoprolol Tartrate (Metoprolol Tartrate 50 Mg Tablet) 50 mg PO BID [facility]; Protocol Last Admin: 04/02/23 06:07 Dose: 50 mg Documented By: TOMASA Comments: given early per MD Lai Omeprazole (Omeprazole 20 Mg Capsule.Dr) 20 mg PO DAILY@0630 [facility] Last Admin: 04/02/23 05:59 Dose: 20 mg Documented By: TOMASA Ondansetron HCl (Ondansetron Hcl 4 Mg/2 Ml Vial) 4 mg IVPUSH Q8H PRN PRN Reason: Nausea and Vomiting Last Admin: 04/02/23 07:47 Dose: 4 mg Documented By: NEO Oxycodone HCl (Oxycodone Hcl Immed Release 5 Mg Tablet) 5 mg PO Q6H PRN PRN Reason: Pain, Severe (Pain Scale 7-10) Last Admin: 04/02/23 07:54 Dose: 5 mg Documented By: NEO Pharmacy Consult (Consult Rx Perform Med Rec) 1 each MISCELLANE ONCE PRN PRN Reason: Consult order Sertraline HCl (Sertraline Hcl 25 Mg Tablet) 25 mg PO DAILY [facility] Last Admin: 04/02/23 07:54 Dose: 25 mg Documented By: NEO Sodium Chloride (0.9 % Sodium Chloride Flush 3 Ml Syringe) 3 ml IVFLUSH QSHIFT [facility] Last Admin: 04/02/23 07:52 Dose: 3 ml Documented By: NEO Labs 04/02/23 06:26 04/02/23 06:26 Labs: Laboratory Results - last 24 hr 04/01/23 04/01/23 04/01/23 11:34 11:36 11:36 MCV 81.9 MCH 28.3 MCHC 34.6 RDW 12.6 Plt Count 196 MPV 10.0 Immature Gran % (Auto) 0.4 Neut % (Auto) 75.3 H Lymph % (Auto) 16.2 L [place] % (Auto) 7.6 Eos % (Auto) 0.1 Baso % (Auto) 0.4 Lymph # (Auto) 1.6 [place] # (Auto) 0.7 Eos # (Auto) 0.0 Baso # (Auto) 0.0 Abs Immat Gran (auto) 0.04 H Absolute Neuts (auto) 7.3 Absolute Nucleated RBC 0.000 Nucleated RBC % (auto) 0.0 ESR 28 H Anion Gap Estim Creat Clear Calc Estimated GFR POC Glucose Random Glucose Lactic Acid 2.7 H* Lactic Acid F/U @ 2Hr Lactic Acid F/U @ 4Hr Calcium Magnesium Total Bilirubin AST ALT Alkaline Phosphatase C-Reactive Protein Total Protein Albumin 04/01/23 04/01/23 04/01/23 11:36 14:34 16:58 MCV MCH MCHC RDW Plt Count MPV Immature Gran % (Auto) Neut % (Auto) Lymph % (Auto) [place] % (Auto) Eos % (Auto) Baso % (Auto) Lymph # (Auto) [place] # (Auto) Eos # (Auto) Baso # (Auto) Abs Immat Gran (auto) Absolute Neuts (auto) Absolute Nucleated RBC Nucleated RBC % (auto) ESR Anion Gap 19 Estim Creat Clear Calc 55.0 Estimated GFR > 60 POC Glucose Random Glucose 232 H Lactic Acid Lactic Acid F/U @ 2Hr 3.3 H* Lactic Acid F/U @ 4Hr 1.9 Calcium 9.9 Magnesium 1.7 Total Bilirubin 0.8 AST 23 ALT 23 Alkaline Phosphatase 104 C-Reactive Protein 12.72 H Total Protein 7.7 Albumin 4.5 04/01/23 04/01/23 04/02/23 17:41 20:55 06:26 MCV 83.7 MCH 28.8 MCHC 34.4 RDW 13.1 Plt Count 266 D MPV 10.4 Immature Gran % (Auto) 1.0 H Neut % (Auto) 77.2 H Lymph % (Auto) 18.3 L [place] % (Auto) 3.3 Eos % (Auto) 0.0 Baso % (Auto) 0.2 Lymph # (Auto) 2.2 [place] # (Auto) 0.4 Eos # (Auto) 0.0 Baso # (Auto) 0.0 Abs Immat Gran (auto) 0.12 H Absolute Neuts (auto) 9.4 H Absolute Nucleated RBC 0.000 Nucleated RBC % (auto) 0.0 ESR Anion Gap Estim Creat Clear Calc Estimated GFR POC Glucose 252 H 322 H Random Glucose Lactic Acid Lactic Acid F/U @ 2Hr Lactic Acid F/U @ 4Hr Calcium Magnesium Total Bilirubin AST ALT Alkaline Phosphatase C-Reactive Protein Total Protein Albumin 04/02/23 04/02/23 06:26 07:12 MCV MCH MCHC RDW Plt Count MPV Immature Gran % (Auto) Neut % (Auto) Lymph % (Auto) [place] % (Auto) Eos % (Auto) Baso % (Auto) Lymph # (Auto) [place] # (Auto) Eos # (Auto) Baso # (Auto) Abs Immat Gran (auto) Absolute Neuts (auto) Absolute Nucleated RBC Nucleated RBC % (auto) ESR Anion Gap 21 H Estim Creat Clear Calc 47.3 Estimated GFR > 60 POC Glucose 313 H Random Glucose 308 H Lactic Acid Lactic Acid F/U @ 2Hr Lactic Acid F/U @ 4Hr Calcium 10.4 H Magnesium Total Bilirubin AST ALT Alkaline Phosphatase C-Reactive Protein Total Protein Albumin Assessment and Plan (1) Toothache: Status: Acute Plan 78-year-old woman admitted with tooth abscess.? She failed 2 rounds of outpatient antibiotics. Tooth abscess with infection Pain and swelling has improved but still present No sepsis Continue clindamycin IV Pain management Has an appointment with a dental surgeon on 04/05/2023 Soft diet with Ensure Lidocaine viscous as needed for mild pain Hypertension Elevated blood pressure likely secondary to pain Continue metoprolol and diltiazem Hydralazine added Diabetes mellitus type 2 with hyperglycemia Continue sliding scale, added mealtime insulin Mental health Continue home medications Hypothyroidism Continue levothyroxine Hyperlipidemia Continue statin GERD Continue PPI DVT prophylaxis with Lovenox Full code Attending Dr. Llamas Continue hospitalization for treatment of tooth infection and abscess requiring IV antibiotics Time Spent With Patient Time: Total time managing care of this patient today ____ minutes. Quality Stroke Does the patient have a stroke diagnosis?: No VTE Prior VTE?: No VTE Risk Level:: Medical - moderate - high VTE Device Contraindication: Treatment Not Indicated VTE Drug Contraindication: N/A - Med Ordered
--- NOTE | 2023-04-02 09:10 | MHC.CM.PN ---
CM met with Patient at bedside and addressed IMM with her, providing Patient with the original and placing a copy on the chart. Patient lives alone in an apartment and she required no services nor DME [employer]. Home/self care is the goal and CM has initiated and will follow for dc planning. Patient's Son/Moises is the HCP and Cameron Parker is the CLINICAL SALES CONSULTANT/ECONOMICS INSTRUCTOR.
[2023-04-02] MEDS: Levothyroxine Sodium 50 MCG TABLET PO (10:16)
[2023-04-02] MEDS: Gabapentin 600 MG TABLET 300 MG PO ×3 (10:16→20:10)
[2023-04-02] MEDS: hydrALAZINE HCl 10 MG TABLET PO ×3 (10:17→18:33)
[2023-04-02 11:14] LABS: Glucose, Whole Blood 309 mg/dL (60-115)
[2023-04-02] MEDS: Enoxaparin Sodium 40 MG/0.4 ML SYRINGE SUBCUT (14:17)
[2023-04-02 15:34] LABS: Glucose, Whole Blood 179 mg/dL (60-115)
[2023-04-02] MEDS: hydrALAZINE HCl 25 MG TABLET PO (20:09)
[2023-04-02 21:21] LABS: Glucose, Whole Blood 247 mg/dL (60-115)
[2023-04-03] MEDS: Melatonin 3 MG TABLET 6 MG PO ×2 (00:33→22:17)
[2023-04-03] MEDS: Clindamycin Phosphate/D5W 600 MG/50 ML PIGGYBACK 100 MG IV ×4 (03:30→19:56)
[2023-04-03 03:35] VITALS: BP 213/98; PULSE 70; RESP 18; TEMP 36; O2SAT 97
[2023-04-03] MEDS: hydrALAZINE HCl 20 MG/ML VIAL 10 MG IVPUSH (04:26)
--- NOTE | 2023-04-03 04:52 | PC.NURSE ---
pt BP 213/9, paged . gave one time dose ordered of IVP hydralzine.
[2023-04-03] MEDS: Omeprazole 20 MG CAPSULE.DR PO (05:54)
[2023-04-03 07:31] LABS: Glucose, Whole Blood 187 mg/dL (60-115)
[2023-04-03 07:52] VITALS: BP 180/80; PULSE 84; RESP 18; TEMP 37; O2SAT 98
[2023-04-03] MEDS: Insulin Lispro 100 UNIT/ML 3 ML VIAL SUBCUT ×8 (08:05→19:55)
[2023-04-03] MEDS: dilTIAZem HCL CD 300 MG CAP.ER.24H PO (08:06)
[2023-04-03] MEDS: Insulin Glargine,Hum.rec.anlog 100 UNIT/ML 10 ML VIAL 8 UNIT SUBCUT (08:06)
[2023-04-03] MEDS: hydrALAZINE HCl 25 MG TABLET PO ×3 (08:07→19:54)
[2023-04-03] MEDS: Levothyroxine Sodium 50 MCG TABLET PO (08:07)
[2023-04-03] MEDS: Metoprolol Tartrate 50 MG TABLET PO (08:07)
[2023-04-03] MEDS: Gabapentin 600 MG TABLET 300 MG PO ×3 (08:08→19:54)
[2023-04-03] MEDS: Sertraline HCL 25 MG TABLET PO (08:08)
[2023-04-03] MEDS: Aspirin 81 MG TAB.CHEW PO (08:08)
[2023-04-03] MEDS: 0.9 % Sodium Chloride Flush 3 ML SYRINGE IVFLUSH ×3 (08:09→19:56)
[2023-04-03] MEDS: Acetaminophen 325 MG TABLET 650 MG PO ×2 (08:52→19:53)
[2023-04-03] MEDS: ondansetron HCL 4 MG/2 ML VIAL IVPUSH ×2 (08:53→18:23)
[2023-04-03 10:09] LABS: Hematocrit 38.3 % (37.0-47.0); Hemoglobin 13.1 g/dl (12.0-16.0); Mean Corpuscular HGB Conc 34.2 g/dl (31.0-35.0); Mean Corpuscular Hemoglobin 28.3 pg (27.0-33.0); Mean Corpuscular Volume 82.7 fL (80.0-98.0); Mean Platelet Volume 9.8 fL (9.4-12.3); Platelet Count 216 X10*3/uL (160-400); Red Blood Count 4.63 X10*6/uL (4.20-5.50); Red Cell Distribution Width 13.3 % (11.0-16.0); White Blood Count 10.2 X10*3/uL (4.8-10.8)
[2023-04-03] MEDS: oxyCODONE HCl Immed Release 5 MG TABLET PO (10:22)
[2023-04-03] MEDS: carvediloL 6.25 MG TABLET PO ×2 (10:23→19:54)
[2023-04-03 11:03] LABS: Glucose, Whole Blood 204 mg/dL (60-115)
[2023-04-03 15:18] VITALS: BP 160/69; PULSE 62; RESP 20; TEMP 35.9; O2SAT 95
[2023-04-03 15:29] LABS: Glucose, Whole Blood 249 mg/dL (60-115)
--- NOTE | 2023-04-03 16:15 | HO.PM.IMPN ---
Subjective Subjective Date of Service: 04/03/23 Interval History: uncontrolled htn ,toothnpain Review of Systems Follow-up tooth pain an abscess Swelling has decreased as well as pain Physical Exam Vital Signs: Vital Signs: Last Vital Signs Temp 96.7 F L 04/03/23 15:18 Pulse 62 04/03/23 15:18 Resp 20 04/03/23 15:18 BP 160/69 H 04/03/23 15:18 Pulse Ox 95 04/03/23 15:18 O2 Del Method Room Air 04/03/23 15:18 BMI result Body Mass Index 25.0 ?Appearing in no acute distress Mouth -right lower back tooth area -no significant erythema ,mild swelling/pain present ?lung sounds are clear to auscultation ?heart regular rate rhythm, clear? S1, S2 ?positive bowel sounds, abdomen is soft, nontender ?neuro patient is alert x3, no focal deficits ?Erythema below chin are, edema has improved Objective Data Active Medications Acetaminophen (Acetaminophen 325 Mg Tablet) 650 mg PO Q6H PRN PRN Reason: Pain, Mild (Pain Scale 1-3) Last Admin: 04/03/23 08:52 Dose: 650 mg Documented By: COLLIN Aspirin (Aspirin 81 Mg Tab.Chew) 81 mg PO DAILY [facility] Last Admin: 04/03/23 08:08 Dose: 81 mg Documented By: COLLIN Carvedilol (Carvedilol 6.25 Mg Tablet) 6.25 mg PO BID [facility]; Protocol Last Admin: 04/03/23 10:23 Dose: 6.25 mg Documented By: COLLIN Dextrose (Dextrose 50 % 25 Gm/50 Ml Syringe) 25 gm IVPUSH Q15M PRN; Protocol PRN Reason: per Hypoglycemia Standing Ord. Diltiazem HCl (Diltiazem Hcl Cd 300 Mg Cap.Er.24h) 300 mg PO DAILY [facility]; Protocol Last Admin: 04/03/23 08:06 Dose: 300 mg Documented By: COLLIN Enoxaparin Sodium (Enoxaparin Sodium 40 Mg/0.4 Ml Syringe) 40 mg SUBCUT Q24H [facility] Last Admin: 04/02/23 14:17 Dose: 40 mg Documented By: NEO Gabapentin (Gabapentin 600 Mg Tablet) 300 mg PO TID [facility] Last Admin: 04/03/23 08:08 Dose: 300 mg Documented By: COLLIN Glucose (Glucose Gel 15 Gm Gel..Gram.) 15 gm PO Q15M PRN; Protocol PRN Reason: per Hypoglycemia Standing Ord. Hydralazine HCl (Hydralazine Hcl 25 Mg Tablet) 25 mg PO TID [facility]; Protocol Last Admin: 04/03/23 08:07 Dose: 25 mg Documented By: COLLIN Clindamycin Phosphate (Cleocin) 600 mg in 50 mls @ 100 mls/hr IV Q6H [facility] Last Infusion: 04/03/23 09:00 Dose: 0 mls/hr Documented By: COLLIN Insulin Glargine (Insulin Glargine,Hum.Rec.Anlog 100 Unit/Ml 10 Ml Vial) 8 unit SUBCUT DAILY [facility] Last Admin: 04/03/23 08:06 Dose: 8 unit Documented By: COLLIN Insulin Human Lispro (Insulin Lispro 100 Unit/Ml 3 Ml Vial) 0 unit SUBCUT QIDACHS [facility]; Protocol Last Admin: 04/03/23 11:42 Dose: 4 unit Documented By: COLLIN Insulin Human Lispro (Insulin Lispro 100 Unit/Ml 3 Ml Vial) 5 unit SUBCUT QIDACHS [facility] Last Admin: 04/03/23 11:43 Dose: 5 unit Documented By: COLLIN Levothyroxine Sodium (Levothyroxine Sodium 50 Mcg Tablet) 50 mcg PO DAILY [facility] Last Admin: 04/03/23 08:07 Dose: 50 mcg Documented By: COLLIN Lidocaine HCl (Lidocaine Hcl Viscous 2 % 15 Ml Solution) 15 ml MUCOUS MEM Q3H PRN PRN Reason: tooth pain Melatonin (Melatonin 3 Mg Tablet) 6 mg PO BEDTIME PRN PRN Reason: Insomnia Last Admin: 04/03/23 00:33 Dose: 6 mg Documented By: MARTHA Omeprazole (Omeprazole 20 Mg Darlene.) 20 mg PO DAILY@0630 [facility] Last Admin: 04/03/23 05:54 Dose: 20 mg Documented By: MARTHA Ondansetron HCl (Ondansetron Hcl 4 Mg/2 Ml Vial) 4 mg IVPUSH Q8H PRN PRN Reason: Nausea and Vomiting Last Admin: 04/03/23 08:53 Dose: 4 mg Documented By: COLLIN Oxycodone HCl (Oxycodone Hcl Immed Release 5 Mg Tablet) 5 mg PO Q6H PRN PRN Reason: Pain, Severe (Pain Scale 7-10) Last Admin: 04/03/23 10:22 Dose: 5 mg Documented By: COLLIN Pharmacy Consult (Consult Rx Perform Med Rec) 1 each MISCELLANE ONCE PRN PRN Reason: Consult order Sertraline HCl (Sertraline Hcl 25 Mg Tablet) 25 mg PO DAILY [facility] Last Admin: 04/03/23 08:08 Dose: 25 mg Documented By: COLLIN Sodium Chloride (0.9 % Sodium Chloride Flush 3 Ml Syringe) 3 ml IVFLUSH QSHIFT [facility] Last Admin: 04/03/23 08:09 Dose: 3 ml Documented By: COLLIN Labs 04/03/23 09:37 04/02/23 06:26 Labs: Laboratory Results - last 24 hr 04/02/23 04/03/23 04/03/23 20:09 07:27 09:37 MCV 82.7 MCH 28.3 MCHC 34.2 RDW 13.3 Plt Count 216 MPV 9.8 Absolute Nucleated RBC 0.000 Nucleated RBC % (auto) 0.0 POC Glucose 247 H 187 H 04/03/23 04/03/23 11:00 15:26 MCV MCH MCHC RDW Plt Count MPV Absolute Nucleated RBC Nucleated RBC % (auto) POC Glucose 204 H 249 H Microbiology Microbiology Results: Microbiology 04/01/23 11:35 Blood Culture - Preliminary Blood - Venous No growth after 48 hours. 04/01/23 14:34 Blood Culture - Preliminary Blood - Venous No growth after 24 hours. Assessment and Plan (1) Toothache: Status: Acute Plan 78-year-old woman admitted with tooth abscess.? She failed 2 rounds of outpatient antibiotics. Tooth abscess with infection Pain and swelling has improved but still present failed outpatient antibiotics rx. No sepsis Continue clindamycin IV Pain management Has an appointment with a dental surgeon on 04/05/2023 Soft diet with Ensure Lidocaine viscous as needed for mild pain Hypertension Elevated blood pressure likely secondary to pain changed metoprolol to coreg and diltiazem Hydralazine added Diabetes mellitus type 2 with hyperglycemia Continue sliding scale, added mealtime insulin Mental health Continue home medications Hypothyroidism Continue levothyroxine Hyperlipidemia Continue statin GERD Continue PPI DVT prophylaxis with Lovenox Full code Continue hospitalization for treatment of tooth infection and abscess requiring IV antibiotics Time Spent With Patient Time: Total time managing care of this patient today ____ minutes. Quality Stroke Does the patient have a stroke diagnosis?: No VTE Prior VTE?: No VTE Risk Level:: Medical - moderate - high VTE Device Contraindication: Treatment Not Indicated VTE Drug Contraindication: N/A - Med Ordered
[2023-04-03] MEDS: Enoxaparin Sodium 40 MG/0.4 ML SYRINGE SUBCUT (16:22)
[2023-04-03 18:48] VITALS: BP 189/84; PULSE 71; RESP 20; TEMP 36.1; O2SAT 97
[2023-04-03 18:59] LABS: Glucose, Whole Blood 172 mg/dL (60-115)
[2023-04-03 22:15] VITALS: BP 162/74
[2023-04-04 03:38] VITALS: BP 210/80; PULSE 77; RESP 18; TEMP 36; O2SAT 98
[2023-04-04] MEDS: Clindamycin Phosphate/D5W 600 MG/50 ML PIGGYBACK 100 MG IV ×2 (03:40→07:59)
[2023-04-04] MEDS: hydrALAZINE HCl 20 MG/ML VIAL 10 MG IVPUSH (04:19)
[2023-04-04] MEDS: oxyCODONE HCl Immed Release 5 MG TABLET PO (06:19)
[2023-04-04] MEDS: Omeprazole 20 MG CAPSULE.DR PO (06:19)
[2023-04-04 07:01] VITALS: BP 180/75
[2023-04-04 07:04] LABS: Glucose, Whole Blood 231 mg/dL (60-115)
--- NOTE | 2023-04-04 07:06 | PC.NURSE ---
PT blood pressure was 210/80 at 3:38. Pt was given IV hydralazine and blood pressure went down to 180/75. MD was made aware.
[2023-04-04 07:46] VITALS: BP 186/88; PULSE 112; RESP 20; TEMP 36.4; O2SAT 97
[2023-04-04] MEDS: Acetaminophen 325 MG TABLET 650 MG PO (07:57)
[2023-04-04] MEDS: carvediloL 12.5 MG TABLET PO (07:58)
[2023-04-04] MEDS: Aspirin 81 MG TAB.CHEW PO (07:58)
[2023-04-04] MEDS: dilTIAZem HCL CD 300 MG CAP.ER.24H PO (07:58)
[2023-04-04] MEDS: Levothyroxine Sodium 50 MCG TABLET PO (07:58)
[2023-04-04] MEDS: Sertraline HCL 25 MG TABLET PO (07:58)
[2023-04-04] MEDS: Gabapentin 600 MG TABLET 300 MG PO (07:59)
[2023-04-04] MEDS: hydrALAZINE HCl 25 MG TABLET PO (07:59)
[2023-04-04] MEDS: Insulin Lispro 100 UNIT/ML 3 ML VIAL SUBCUT ×4 (07:59→11:39)
[2023-04-04] MEDS: Insulin Glargine,Hum.rec.anlog 100 UNIT/ML 10 ML VIAL 8 UNIT SUBCUT (08:00)
[2023-04-04] MEDS: 0.9 % Sodium Chloride Flush 3 ML SYRINGE IVFLUSH (08:01)
--- NOTE | 2023-04-04 10:37 | MHC.CM.PN ---
Per MD, Patient is medically cleared for dc to home today, self care. Last IMM addressed on 04/02/2023.
[2023-04-04 11:14] LABS: Glucose, Whole Blood 198 mg/dL (60-115)
[2023-04-04 11:25] VITALS: BP 142/67; PULSE 84; RESP 18; TEMP 36.2; O2SAT 95
--- NOTE | 2023-04-04 11:39 | P.DS_ITS ---
DS: Providers Provider Date of Service: 04/04/23 Date of admission: 04/01/23 14:57 Date of discharge: 04/04/23 Primary care physician: Cameron Parker NP Attending physician on discharge: Giovani Tomas Discharging clinician: Giovani Tomas DS: Diagnosis Discharge Diagnosis (1) Toothache: Status: Acute (2) Uncontrolled hypertension: Status: Acute DS: Summary Hospital Course Hospital Course: 70-year-old woman presented to the ER with tooth infection.? Patient was being treated with oral antibiotics but failed.? She had episodes of nausea and v omiting and was unable to keep anything down.? She reported increased swelling to her right gum area as well as her cheek and neck area.? Very sensitive and painful to the touch.? She denied fever, chills.? She does have an appointment with an oral surgeon on . Facial CT showed no large soft tissue abscess although on clinical examination she does appear to have a small one on the gum area. Labs within acceptable limits, vital signs are stable though her blood pressure is high Likely secondary to pain.? In the ER, she was given a dose of clindamycin, Decadron and 2 L of IV fluids.? She will be admitted for further management and treatment of acute tooth infection with abscess. Hospital course: Patient came to the hospital with tooth infection( right sided molar area), she failed outpatient antibiotic therapy-started on IV antibiotics, blood cultures sent. Patient seems to be significantly improved with above management. Patient will be going home with p.o. clindamycin for 7 days. uncontrolled htn -added coreg(metoprolol stopped) and hydralazine for better blood pressure control. Further management out patiently. plan: complete p.o. clindamycin for 7 days. added coreg(metoprolol stopped) and hydralazine for better blood pressure control.moniter blood pressure closely . Patient is to follow-up with PCP and dental outpatient. Above management discussed with the patient in detail length she understand and in agreement with the above plan, time spent 50 minutes and 50% time spent on counseling. Time Spent with Patient Time attestation: Total time managing care of this patient today ____ minutes. Discharge coordination time: Greater than 30 minutes Quality: Safe Use of Opioids Does Pt have an Active Cancer Diagnosis on the Problem List?: No Quality: Stroke Does the patient have a stroke diagnosis?: No Physical Exam Vital Signs: Vital Signs: Last Vital Signs Temp 97.1 F 04/04/23 11:25 Pulse 84 04/04/23 11:25 Resp 18 04/04/23 11:25 BP 142/67 H 04/04/23 11:25 Pulse Ox 95 04/04/23 11:25 O2 Del Method Room Air 04/04/23 11:25 BMI result Body Mass Index 25.0 Appearance: Alert.? Oriented X3.? not in distress.? ENT-right sided tooth area-molar area -no swelling,erythema resolved. cvs: rrr, [id number] , no murmur res: clear to auscultation ,no rhonchii or wheezing abd: no rebound or guarding ,nt, bs present. ext pulses present , no cyanosis . neuro: axo3 , nonfocal. DS: Data Data Completed and Pending Labs on day of discharge: Laboratory Results - last 24 hr 04/03/23 04/03/23 04/04/23 15:26 18:55 06:59 POC Glucose 249 H 172 H 231 H 04/04/23 10:57 POC Glucose 198 H Preliminary micro results at discharge 04/01/23 14:34 Blood Culture - Preliminary Blood - Venous No growth after 48 hours. 04/01/23 11:35 Blood Culture - Preliminary Blood - Venous No growth after 48 hours. Imaging Chest x-ray: Radiologist's impression: ITS Impressions Face CT 04/01/23 13:33 IMPRESSION: Standard facial CT scan has limited sensitivity for assessment of periodontal disease, the morning artifact from dental implants, no large soft tissue abscesses identified. Recommend correlation with follow-up dental evaluation and x-rays. Discharge Plan Discharge Anticipated Discharge Date/Time: 04/04/23 11:00 Patient Disposition: Home, Self-Care Discharge Diagnosis: Tooth infection Referrals: Cameron Parker NP [Primary Care Provider] - 1 Week Discharge Medications: New clindamycin HCl 300 mg capsule 450 mg PO Q8H Qty: 32 0RF carvedilol 12.5 mg Tablet 12.5 mg PO BID Qty: 60 0RF Protocol: Hold for SBP/HR < HOLD for SBP < : 90 HOLD for HR < : 60 hydralazine 25 mg Tablet 25 mg PO TID Qty: 90 0RF Protocol: Hold for SBP< HOLD for SBP < : 90 Continued atorvastatin 40 mg tablet 40 mg PO DAILY gabapentin 600 mg tablet 300 mg PO TID tramadol 50 mg tablet 50 mg PO BID PRN (Reason: severe pain) diltiazem HCl 300 mg capsule,extended release 24hr 300 mg PO DAILY ferrous sulfate 325 mg (65 mg iron) Tablet 325 mg PO QPM Guanaco Jackson U-300 Insulin 300 unit/mL (1.5 mL) insulin pen 10 unit subcut QAM levothyroxine 50 mcg tablet 50 mcg PO DAILY metformin 500 mg tablet extended release 24 hr 500 mg PO TID omeprazole 20 mg capsule,delayed release(DR/EC) 20 mg PO BID sertraline 25 mg tablet 25 mg PO DAILY sodium polystyrene sulfonate Powder 10 g PO DAILY aspirin [Adult Aspirin Regimen] 81 mg tablet,delayed release (DR/EC) 81 mg PO DAILY nitroglycerin 0.4 mg tablet, sublingual 0.4 mg sublingual Q5M PRN (Reason: Chest Pain) Rx Instructions: do not exceed 3 doses per episode Discontinued amoxicillin 500 mg capsule 500 mg PO TID metoprolol tartrate 50 mg tablet 50 mg PO BID Discharge Orders: Discharge Order (Routine); Ordered 04/04/23 Ordered By: Giovani Tomas Diet: Advance to usual diet Activity on Discharge: As tolerated Stand Alone Forms: Patient Portal Discharge page Care Plan Goals: Patient came to the hospital with tooth infection, she failed outpatient antibiotic therapy-started on IV antibiotics, blood cultures sent. Patient seems to be significantly improved with above management. Patient will be going home with p.o. clindamycin for 7 days. Further management out patiently. Patient is to follow-up with PCP and dental outpatient. Health Concerns: As above. Plan of Treatment: as above. Assessment: As above.
== END 2023-04-04 15:08 | disposition home or self-care (01) | DRG 159 ==
LOC: HO.ED 14:18 → HO.EDOVER 15:30 → HO.IMC 22:09
PROVIDERS: Physician Assistant Medical; Admitting Provider Nurse Practitioner Acute Care; Emergency Provider Emergency Medicine; PCP Nurse Practitioner Adult Health; Visit Provider Internal Medicine
DX: K04.7 Periapical abscess without sinus (principal); E11.65 Type 2 diabetes mellitus with hyperglycemia; E03.9 Hypothyroidism, unspecified; I10 Essential (primary) hypertension; F32.A Depression, unspecified; E78.5 Hyperlipidemia, unspecified; K21.9 Gastro-esophageal reflux disease without esophagitis; Z91.040 Latex allergy status; Z79.4 Long term (current) use of insulin; Z79.82 Long term (current) use of aspirin; Z79.84 Long term (current) use of oral hypoglycemic drugs; Z79.890 Hormone replacement therapy; Z79.899 Other long term (current) drug therapy
CPT/HCPCS: 36415; 70487; 80048; 80053; 82947; 83605; 83735; 85025; 85027; 85652; 86140; 87040; 99285; J1100; J1650; J2405; Q9967

== ENCOUNTER → 2023-04-01 11:26 | Outpatient (BNV) | payer MEDICARE, OTHER, SELFPAY | PROVIDERS: Emergency Provider Emergency Medicine; Visit Provider Nurse Practitioner Acute Care | DX: I10 Essential (primary) hypertension (principal); K08.89 Other specified disorders of teeth and supporting structures | CPT/HCPCS: 99222; 99232; 99239 ==

== ENCOUNTER 2024-09-02 15:16 | Outpatient (REF) | payer MEDICARE, OTHER, SELFPAY ==
--- NOTE | ~2024-09-02 | XR_ITS ---
CLINICAL HISTORY: osteoarthritis lt knee 3 view left knee Comparison: None Findings: Bones intact. No dislocations. There is a medullary chuck with distal locking screws in the femur No significant arthritic change or erosions. No joint effusion. No other radiopaque foreign body. IMPRESSION: 1. No acute findings. This document has been electronically signed by: Tim Mccarthy MD on 09/04/2024 19:02:17
== END 2024-09-02 15:17 | disposition home or self-care (01) ==
LOC: HO.XRAY 15:16
PROVIDERS: Visit Provider Physical Medicine & Rehabilitation
DX: M17.12 Unilateral primary osteoarthritis, left knee (principal)
CPT/HCPCS: 73562

== ENCOUNTER → 2024-09-02 15:23 | Outpatient (BNV) | payer MEDICARE, OTHER, SELFPAY | PROVIDERS: Visit Provider Specialist | DX: M17.12 Unilateral primary osteoarthritis, left knee (principal) | CPT/HCPCS: 73562 ==